=== PATIENT | female | born 1985 | race African-American/Black ===

== ENCOUNTER → 2016-08-05 | Outpatient (CLI) | payer OTHER | LOC: HPND 08:48 | PROVIDERS: ATTEND Obstetrics & Gynecology | DX: O09.891 Supervision of other high risk pregnancies, first trimester (principal); O09.291 Supervision of pregnancy with other poor reproductive or obstetric history, first trimester; Z3A.13 13 weeks gestation of pregnancy; Z87.59 Personal history of other complications of pregnancy, childbirth and the puerperium | CPT/HCPCS: 36416; 76813 ==

== ENCOUNTER → 2016-09-09 | Outpatient (CLI) | payer OTHER | LOC: HPND 12:55 | PROVIDERS: ATTEND Obstetrics & Gynecology | DX: O09.292 Supervision of pregnancy with other poor reproductive or obstetric history, second trimester (principal); Z3A.18 18 weeks gestation of pregnancy | CPT/HCPCS: 76805; 76817 ==

== ENCOUNTER → 2016-10-06 | Outpatient (CLI) | payer OTHER | LOC: HPND 15:07 | PROVIDERS: ATTEND Obstetrics & Gynecology | DX: O09.292 Supervision of pregnancy with other poor reproductive or obstetric history, second trimester (principal) | CPT/HCPCS: 76816; 76817 ==

== ENCOUNTER → 2016-11-18 | Outpatient (CLI) | payer OTHER | LOC: HPND 13:57 | PROVIDERS: ATTEND Obstetrics & Gynecology | DX: O09.293 Supervision of pregnancy with other poor reproductive or obstetric history, third trimester (principal) | CPT/HCPCS: 76816 ==

== ENCOUNTER 2017-01-08 07:20 | Emergency (ER) | payer OTHER ==
--- NOTE | 2017-01-08 08:07 | PD ---
HPI Chief Complaint crampy pain dizziness headache Date Seen: Jan 08, 2017 Time Seen: 08:00 Travel History International Travel<30 Days: No Contact w/Intl Traveler<30Days: Yes Name of Country Traveled to: [facility] Known Affected Area: No History of Present Illness HPI This patient is a 31-year-old black female L0 at [address] Mae's who presents complaining of crampy pain dizziness and headache over the last few hours. Patient states that she's been here on OB ED for a few minutes the headache and dizziness is gone and she feels fine, her baby is active heart rate tracing is reactive and she is having occasional small contractions, most of her pain and she relates to moving sitting up laying down walking. Denies bleeding or leakage of fluid. Patient' s 1 delivery was at approximately 24 weeks demise Weeks Gestation: 35 Para: 1 : 2 History Obstetric History Obstetric History Previous was demise to 24 weeks Social History Alcohol Use: No Tobacco Use: No Substance Abuse: No Review of Systems General / Constitutional: No: Fever, Weight Gain, Chills, Other Eyes: No: Diploplia, Blurred Vision, Visual changes, Pain, Photophobia HENT: Headaches, No: Vertigo, Lightheadedness Cardiovascular: No: Irregular Rhythm, Chest Pain or Discomfort, Palpitations, Tachycardia, Syncope, Varicosities, Edema, Cyanosis Respiratory: No: Cough, Short of Breath, Other Gastrointestinal: Abdominal Pain, No: Nausea, Vomiting, Diarrhea Genitourinary: Pelvic Pain, No: Decreased Urinary Output, Oliguria Musculoskeletal: No: Limited ROM, Weakness, Cramping, Edema, Pain Skin: No Rash, No Itching, No Dryness, No Lumps, No Change in Pigmentation, No Change in Nails, No Alopecia, No Lesions Neurologic: Dizziness, No: Weakness, Syncope, Focal Abnormalities, Coordination Problem, Headache, Slurred Speech, Seizures Psychiatric: No: Depression, Suicidal Ideations, Homicidal Ideation Endocrine: No: Heat Intolerance, Cold Intolerance, Polydipsia, Polyuria, Other Physical Exam Narrative GENERAL: Well-nourished, well-developed patient. SKIN: Warm and dry. HEAD: Normocephalic and atraumatic. EYES: No scleral icterus. No injection or drainage. ENT: No nasal drainage noted. Mucous membranes pink. Airway patent. NECK: Supple, trachea midline. No JVD. CARDIOVASCULAR: Regular rate and rhythm without murmurs, gallops, or rubs. RESPIRATORY: Breath sounds equal bilaterally. No accessory muscle use. BREASTS: Bilateral exam showed no masses , no retractions, no nipple discharge. ABDOMEN/GI: Abdomen soft, non-tender, bowel sounds present, no rebound, no guarding Gravid to [35-] weeks size Fundal Height: [-35] GENITOURINARY: External Genitalia: intact and normal in appearance BUS glands: [-] Cervix: [-post] Dilatation: [-Closed] Effacement: [-] Thick Station: [-3] Presentation: [vtx-] Membranes: [intact ] Uterine Contractions: [Occasional-] FHT's: Category: [1-] Baseline: [-133] Reactive: [yes-] Variability: [mod-] Decels: [none-] EXTREMITIES: No cyanosis or edema. BACK: Nontender without obvious deformity. No CVA tenderness. NEUROLOGICAL: Awake and alert. Motor and sensory grossly within normal limits. Five out of 5 muscle strength in all muscle groups. Normal speech. Data Data Labs Urine dipstick negative MDM Interpretation(s) Patient is 31-year-old black female L0 at 35 weeks gestation who presents complaining of crampy pains headache and dizziness. Essentially all those symptoms have resolved just being here on OB ED and resting for little while on the monitor, she's had no bleeding or leakage her cervix is closed long and high , urine dipstick is negative, heart rate tracing is reactive and she is only an occasional contraction. Plan Plan is to by mouth hydrate, use Tylenol liberally for pain, heating pad on low or abdomen or soaking a hot bath. Bedrest today given a work note to be out today and the rest and follow up with her OB provider Dr. Mae Diagnosis Diagnosis: Primary Impression: 35 weeks gestation of Additional Impression: Abdominal cramps Disposition: 01 DISCHARGE HOME Condition: Stable Donnell Monroe II, MD Jan 08, 2017 08:07
== END 2017-01-08 08:36 | disposition home or self-care (01) ==
LOC: HOBED 07:20
DX: O47.03 False labor before 37 completed weeks of gestation, third trimester (principal); Z3A.35 35 weeks gestation of pregnancy
CPT/HCPCS: 99283

== ENCOUNTER 2017-02-03 05:12 | Inpatient (IN) | payer OTHER ==
[2017-02-03] VITALS (75 sets, daily range): BP systolic 101–152; BP diastolic 44–107; PULSE 86–115; RESP 16–20; TEMP 97.7–98.7
[~2017-02-03] VITALS: Ht 162.6 cm; Wt 78.0 kg
[2017-02-03] MEDS ORDERED: LIDOCAINE HCL 1% 50 ML VIAL I-DERMAL PRN (05:30)
[2017-02-03] MEDS ORDERED: LACTATED RINGER'S 1000 ML BOLUS IV PRN (05:30)
[2017-02-03] MEDS ORDERED: NS 500 ML BOLUS IV PRN (05:30)
[2017-02-03] MEDS ORDERED: OXYTOCIN 30 UNITS 500ML PREMIX IV ONE (05:30)
[2017-02-03] MEDS ORDERED: NS 1000 ML IV PRN (05:30)
[2017-02-03] MEDS ORDERED: LIDOCAINE HCL 1% 50 ML VIAL INFIL PRN (05:30)
[2017-02-03] MEDS ORDERED: MINERAL OIL 10 ML VIAL TOPICAL PRN (05:30)
[2017-02-03] MEDS ORDERED: CITRIC ACID-SODIUM CITRATE LIQ 30 ML UDC PO SCH (05:30)
[2017-02-03] MEDS ORDERED: ONDANSETRON HCL 4 MG/2 ML VIAL IV PUSH PRN (05:30)
[2017-02-03] MEDS ORDERED: PRENCAP10 PO (05:32)
[2017-02-03] MEDS ORDERED: OXYTOCIN 30 UNITS/NS 500ML PREMIX IV SCH (05:45)
[2017-02-03] MEDS ORDERED: PENICILLIN G POT 5,000,000 UNITS/NS 100 ML (Mini-Bag Plus) IV ONE ×2 (05:45)
[2017-02-03] MEDS: LACTATED RINGER'S 1000 ML IV SCH ×3 (05:52→21:10)
[2017-02-03 06:20] LABS: AUTOMATED NEUTROPHIL # 4.1 TH/MM3 (1.8-7.7); BASOPHIL % 0.5 % (0.0-2.0); EOSINOPHIL % 0.5 % (0.0-4.0); HEMO FLAGS DIFF FINAL; LYMPH % 27.6 % (9.0-44.0); LYMPHOCYTE # 1.9 TH/MM3 (1.0-4.8); MEAN CELL VOLUME 82.7 FL (80.0-100.0); MEAN CORPUSCULAR HGB CONC 32.7 % (32.0-36.0); MONO % 10.1 % (0.0-8.0); NEUT % 61.3 % (16.0-70.0); PLATELET COUNT 304 TH/MM3 (150-450); RED BLOOD COUNT 4.24 MIL/MM3 (4.00-5.30); RED CELL DISTRIBUTION WIDTH 14.4 % (11.6-17.2); WHITE BLOOD COUNT 6.7 TH/MM3 (4.0-11.0)
--- NOTE | 2017-02-03 07:11 | PD.LABORPN ---
Subjective Subjective pt comfortable Objective Vital Signs Vital Signs Date Time Temp Pulse Resp B/P (MAP) Pulse Ox O2 Delivery O2 Flow Rate FiO2 02/03/17 06:15 20 02/03/17 06:04 100 129/87 (101) 02/03/17 05:45 98.5 20 02/03/17 05:37 108 130/84 (99) Objective Pelvic Exam: Cervix: [-] Dilatation: [-] 2 Effacement: [-] 70 Station: [-] -2 Presentation: [-] vtx Membranes: [intact or ruptured] arom clr Uterine Contractions: [-] FHT's: Category: [-] 1 Baseline: [-] 140s Reactive: [-] yes Variability: [-] Decels: [-] Weeks Gestation: 39 Gest Age Assessed Date: Feb 03, 2017 Gest Age Assessed Time: 05:23 Pt started active labor?: No Medical induction of labor?: Yes Medical induction start date: Feb 03, 2017 Medical induction start time: 05:00 Artificial rupture of membrane: Yes Artificial ROM date: Feb 03, 2017 Artifical ROM time: 06:30 Assessment/Plan Problem List: (1) Hx of intrauterine , currently ICD Codes: O09.299 - Supervision of with other poor reproductive or obstetric history, unspecified trimester Plan: presents for induction of labor b/c of hx of IUFD with past Rony Mae MD Feb 03, 2017 07:11
[2017-02-03 08:27] LABS: BACTERIA, URINE MOD /hpf; BLOOD, URINE MOD (NEG); COMMENT (UR) CULTURE INDICATED; CULTURE IF INDICATED CULTURE INDICATED; GLUCOSE,URINE NEG (NEG); KETONE, URINE NEG (NEG); MUCUS URINE FEW /lpf (OCC); NITRITE,URINE NEG (NEG); PH, URINE 6.5 (5.0-8.5); SQUAMOUS EPITHELIAL CELL URINE 31 /hpf (0-5); URINE COLOR LIGHT-YELLOW (YELLW/STRAW)
[2017-02-03] MEDS: PENICILLIN G POT 2,500,000 UNITS/NS 100 ML IV SCH ×6 (09:42→17:45)
[2017-02-03] MEDS ORDERED: fentaNYL 2MCG-BUPIV 0.125% INJ 100 ML ONE (13:45)
[2017-02-03] MEDS ORDERED: ePHEDrine/NS 25 MG/5 ML SYR ONE (13:52)
[2017-02-03] MEDS ORDERED: DO NOT ADMINISTER ANTICOAGULANTS PRN (15:15)
[2017-02-03] MEDS ORDERED: ePHEDrine/NS 25 MG/5 ML SYR IV PUSH PRN (15:15)
[2017-02-03] MEDS ORDERED: NO SYSTEM NARCOTICS PRN (15:15)
[2017-02-03] MEDS ORDERED: BUPIVACAINE HCL PF 0.25% 10 ML VIAL ONE (19:40)
[2017-02-03] MEDS: fentaNYL 2MCG-BUPIV 0.125% 100 ML EPIDURAL SCH (21:10)
[2017-02-04] VITALS (24 sets, daily range): BP systolic 91–143; BP diastolic 61–88; PULSE 84–123; RESP 16–20; TEMP 98.2–98.9
[2017-02-04] MEDS: PENICILLIN G POT 2,500,000 UNITS/NS 100 ML IV SCH ×4 (00:14→02:12)
[2017-02-04] MEDS: fentaNYL 2MCG-BUPIV 0.125% 100 ML EPIDURAL SCH (02:57)
--- NOTE | 2017-02-04 04:24 | PD.OB.DELI ---
Weeks gestation: 39 Gest age assessed date: Feb 03, 2017 Gest age assessed time: 05:23 Pt started active labor?: No Medical induction of labor?: Yes Medical induction start date: Feb 03, 2017 Medical induction start time: 05:00 Artificial rupture of membrane: Yes Artificial ROM date: Feb 03, 2017 Artifical ROM time: 06:30 Anesthesia: Epidural Episiotomy: None Vaginal Delivery: Normal Presentation: Occiput anterior Nuchal Cord: None Delayed cord clamping (45 sec): Yes : Male, Single Delivery date: Feb 04, 2017 Delivery time: 03:43 One Minute : 8 Five Minute : 9 Weight: 7-1 Placenta: Spontaneous delivery, Intact, 3 vessel cord Laceration: Perineal laceration, 3 deg Repair: Chromic running Estimated blood loss: 300 ml Rony Mae MD Feb 04, 2017 04:24
[2017-02-04] MEDS ORDERED: SODIUM CHLORIDE 0.9% FLUSH 10 ML FLUSH IV FLUSH PRN (04:30)
[2017-02-04] MEDS ORDERED: BENZOCAINE 20% TOPICAL SPRAY 60 ML CAN TOPICAL PRN (04:30)
[2017-02-04] MEDS ORDERED: OXYTOCIN 10 UNIT/ML AMP XX PRN (04:30)
[2017-02-04] MEDS ORDERED: OXYTOCIN 30 UNITS-500ML PREMIX 500 ML IV SCH (04:30)
[2017-02-04] MEDS ORDERED: WITCH HAZEL 50%/GLYCERIN 12.5% 40 PAD JAR TOPICAL PRN (04:30)
[2017-02-04] MEDS ORDERED: ALUMINUM/MAGNESIUM/SIMETH 30 ML CUP PO PRN (04:30)
[2017-02-04] MEDS ORDERED: DOCUSATE SODIUM 50 MG/SENNA 8.6 MG TAB PO PRN (04:30)
[2017-02-04] MEDS ORDERED: ZOLPIDEM TARTRATE 5 MG TAB PO PRN (04:30)
[2017-02-04] MEDS ORDERED: OXYTOCIN 30 UNITS-500ML PREMIX 500 ML IV ONE (04:30)
[2017-02-04] MEDS ORDERED: oxyCODONE/ACETAMINOPHEN 5 MG/325 MG TAB PO PRN ×2 (04:30)
[2017-02-04] MEDS ORDERED: ONDANSETRON ODT 4 MG TAB PO PRN (04:30)
[2017-02-04] MEDS: IBUPROFEN 600 MG TAB PO PRN ×3 (07:17→22:51)
[2017-02-04] MEDS ORDERED: SODIUM CHLORIDE 0.9% FLUSH 10 ML FLUSH IV FLUSH SCH (09:00)
[2017-02-04] MEDS ORDERED: INFLUENZA VIRUS VACCINE (QUADRIVALENT) 0.5 ML SYR IM ONE (10:00)
[2017-02-04] MEDS: ACETAMINOPHEN 325 MG TAB PO PRN ×3 (12:07→22:51)
[2017-02-04] MEDS ORDERED: DIPHTH/TETANUS/ACEL PERTUSSIS (BOOSTER) 0.5 ML VIAL/PFS IM ONE (16:00)
[2017-02-04] MEDS ORDERED: MEASLES, MUMPS, RUBELLA VACCINE 0.5 ML VIAL SQ ONE (16:00)
[2017-02-05 08:32] VITALS: BP 127/74; PULSE 91; RESP 16; TEMP 98.2
[2017-02-05] MEDS: ACETAMINOPHEN 325 MG TAB PO PRN ×3 (09:21→22:45)
[2017-02-05] MEDS: IBUPROFEN 600 MG TAB PO PRN ×3 (09:22→22:45)
[2017-02-05] MEDS ORDERED: IBUP-232 PO (13:20)
[2017-02-05] MEDS ORDERED: OXYC1TAB63 PO (13:20)
[2017-02-06] MEDS: IBUPROFEN 600 MG TAB PO PRN (07:03)
[2017-02-06] MEDS: ACETAMINOPHEN 325 MG TAB PO PRN (07:04)
== END 2017-02-06 11:57 | disposition home or self-care (01) | DRG 775 ==
LOC: H2EA 05:12 → H1EA 02-04 06:25
PROVIDERS: ADMIT Obstetrics & Gynecology; ATTEND Obstetrics & Gynecology
PROC: 10907ZC Drainage of Amniotic Fluid, Therapeutic from Products of Conception, Via Natural or Artificial Opening (ICD-10-PCS; 2017-02-03)
PROC: 3E0R3BZ Introduction of Anesthetic Agent into Spinal Canal, Percutaneous Approach (ICD-10-PCS; 2017-02-03)
PROC: 00HU33Z Insertion of Infusion Device into Spinal Canal, Percutaneous Approach (ICD-10-PCS; 2017-02-03)
PROC: 3E0P3VZ Introduction of Hormone into Female Reproductive, Percutaneous Approach (ICD-10-PCS; 2017-02-03)
PROC: 10E0XZZ Delivery of Products of Conception, External Approach (ICD-10-PCS; principal; 2017-02-04)
PROC: 0DQR0ZZ Repair Anal Sphincter, Open Approach (ICD-10-PCS; 2017-02-04)
DX: O70.20 Third degree perineal laceration during delivery, unspecified (principal); O09.293 Supervision of pregnancy with other poor reproductive or obstetric history, third trimester; O99.820 Streptococcus B carrier state complicating pregnancy; Z37.0 Single live birth; Z3A.39 39 weeks gestation of pregnancy
CPT/HCPCS: 76816; 76818; 81001; 85025; 86900; 86901; 87086; 90686; 90715; J2540; J2590; J3010; J7030; J7120; Q2038